=== PATIENT | male | born 1990 | race Caucasian/White ===

== ENCOUNTER 2019-09-30 09:56 | Emergency (ER) | payer MEDICAID, SELFPAY ==
[2019-09-30 10:05] VITALS: BP 135/85; PULSE 84; RESP 13; TEMP 37.2; O2SAT 96; BMI 27.1
[2019-09-30 10:14] LABS: Add Manual Diff / Slide Review NO; Basophils Absolute Auto 0 /uL (0-100); Eosinophils Absolute Auto 300 /uL (0-450); Eosinophils Percent Auto 5.6 % (2-4); Hematocrit 38.1 % (41-53); Hemoglobin 13.4 g/dL (13.5-17.5); Lymphocytes Absolute Auto 1300 /uL (1100-4500); Lymphocytes Percent Auto 28.9 % (25-40); Mean Corpuscular HGB Conc 35.1 % (30-36); Mean Corpuscular Hemoglobin 30.7 PG (26-34); Mean Corpuscular Volume 87.5 fL (80-100); Monocytes Absolute Auto 400 /uL (0-900); Monocytes Percent Auto 8.1 % (3-14); Neutrophils Absolute Auto 2600 /uL (1500-7000); Neutrophils Percent Auto 56.4 % (50-75); Platelet Count 199 X10^3/uL (150-400); Red Blood Cell Count 4.36 X10^6/uL (4.5-5.9); Red Cell Distribution Width 12.9 % (11.6-14.8); White Blood Cell Count 4.6 X10^3/uL (4.5-11.0)
[2019-09-30 10:22] LABS: BUN Creatinine Ratio 23.3 (6-22); Blood Urea Nitrogen 21 mg/dL (9-20); Calcium 9.6 mg/dL (8.4-10.2); Carbon Dioxide 24 mmol/L (22-32); Chloride 104 mmol/L (98-107); Estimated Glomerular Filt Rate > 60.0 mL/min (>60); Glucose 102 mg/dL (70-100); HEMOLYSIS < 15 (0-50); Magnesium 2.1 mg/dL (1.6-2.3); Potassium 4.2 mmol/L (3.4-5.1); Sodium 140 mmol/L (137-145)
[2019-09-30 10:39] LABS: Prolactin 11.3 ng/mL (3.7-17.9)
[2019-09-30] MEDS: KETOROLAC 60 MG/2 ML VIAL 30 MG IV (11:26)
[2019-09-30] MEDS: levETIRAcetam 500 MG in SODIUM CHLORIDE 0.9% 100 ML 420 ML IV (11:26)
[2019-09-30] MEDS: LORazepam 2 MG/ML INJ 0.5 MG IV (11:27)
[2019-09-30 11:53] VITALS: BP 107/59; PULSE 71; RESP 14
--- NOTE | 2019-09-30 20:44 | ED.SEIZURE ---
HPI - Seizure General Chief Complaint: Seizure Stated Complaint: Seizure Time Seen by Provider: 09/30/19 10:51 Source: patient Mode of arrival: EMS Limitations: no limitations History of Present Illness HPI Narrative: The patient is a 28-year-old male who had a history of grand mal seizure today that lasted approximately 2 minutes. He states that he was at the [facility] when he had the seizure. The seizure lasted less than 2 minutes. The patient missed his dose of Keppra. He denies any recent fall or injury. He has not been drinking alcohol or using any drugs. He denies any headache but has had a muscle cramp in his right posterior calf. He denies any back pain neck pain chest pain shortness of breath difficulty in breathing abdominal pain nausea vomiting diarrhea incontinence of urine or stool. He admits to smoking cigarettes. Does not use any drugs. Related Data Allergies Allergy/AdvReac Type Severity Reaction Status Date / Time No Known Drug Allergies Allergy Verified 09/30/19 10:05 Review of Systems Review of Systems ROS Unobtainable: All systems reviewed & are unremarkable except as noted in HPI and below Patient History Social History Smoking Status: Current every day smoker Smoking Status: Current every day smoker alcohol intake frequency: other Substance Use Type: does not use Exam Narrative Exam Narrative: PHYSICAL EXAM: CONSTITUTIONAL: Awake, Alert, Oriented, Coherent, Cooperative in NAD. Does not appear toxic or ill. HEAD: AT/NC EENT: PERRL, FROM of eyes, no discharge, no nystagmus Oral mucosa is moist and pink, posterior pharynx is without erythema or exudate. No appreciable bite to his tongue. NECK: Supple, no obvious JVD, Trachea is midline without stridor, no palpable LN or masses. SPINE: No gross deformity, no palpable tenderness of the cervical, thoracic, lumbar or sacral spine. No CVA tenderness. THORAX: No deformity, retractions, chest wall tenderness, subcutaneous air or crepitice. LUNGS: Clear with symmetrical breath sounds without respiratory distress HEART: Normal heart tones, regular rhythm and rate without murmur. ABDOMEN: Soft, non-tender, normal bowel sounds without guarding, rebound, rigidity or palpable mass or organomegaly. EXTREMITIES: No edema, cyanosis, deformity the patient has muscle cramps in tenderness posterior right calf. SKIN: No rash, bruising, petechiae or purpura. NEURO: Awake, alert, oriented, conversive, cranial nerves II-XII are symmetrical and normal, moves all 4 extremities and is ambulatory Initial Vital Signs Initial Vital Signs: Vital Signs Temperature 99.0 F 09/30/19 10:05 Pulse Rate 84 09/30/19 10:05 Respiratory Rate 13 09/30/19 10:05 Blood Pressure 135/85 09/30/19 10:05 Pulse Oximetry 96 09/30/19 10:05 Course Orders Ordered: Discontinued Medications Levetiracetam 500 mg/ Sodium (Chloride) 105 mls @ 420 mls/hr IV NOW ONE Stop: 09/30/19 11:02 Last Admin: 09/30/19 11:26 Dose: 420 mls/hr Documented by: HEARRINGTO Ketorolac Tromethamine (Toradol) 30 mg IV NOW ONE Stop: 09/30/19 11:16 Last Admin: 09/30/19 11:26 Dose: 30 mg Documented by: HEARRINGTO Lorazepam (Ativan) 0.5 mg IV NOW ONE Stop: 09/30/19 11:16 Last Admin: 09/30/19 11:27 Dose: 0.5 mg Documented by: HEARRINGTO MDM - Seizure Lab Data Result diagrams: 09/30/19 10:03 09/30/19 10:03 Labs: Lab Results 09/30/19 09/30/19 Range/Units 10:03 10:03 WBC 4.6 (4.5-11.0) X10^3/uL RBC 4.36 L (4.5-5.9) X10^6/uL Hgb 13.4 L (13.5-17.5) g/dL Hct 38.1 L (41-53) % MCV 87.5 (80-100) fL MCH 30.7 (26-34) PG MCHC 35.1 (30-36) % RDW 12.9 (11.6-14.8) % Plt Count 199 (150-400) X10^3/uL Neut % (Auto) 56.4 (50-75) % Lymph % (Auto) 28.9 (25-40) % [place] % (Auto) 8.1 (3-14) % Eos % (Auto) 5.6 H (2-4) % Baso % (Auto) 1.0 (0-2) % Neut # (Auto) 2600 (2457-3603) /uL Lymph # (Auto) 1300 (2626-2960) /uL [place] # (Auto) 400 (0-900) /uL Eos # (Auto) 300 (0-450) /uL Baso # (Auto) 0 (0-100) /uL Sodium 140 (137-145) mmol/L Potassium 4.2 (3.4-5.1) mmol/L Chloride 104 (98-107) mmol/L Carbon Dioxide 24 (22-32) mmol/L BUN 21 H (9-20) mg/dL Creatinine 0.90 (0.66-1.25) mg/dL Estimated GFR > 60.0 (>60) mL/min BUN/Creatinine Ratio 23.3 H (6-22) Glucose 102 H (70-100) mg/dL Calcium 9.6 (8.4-10.2) mg/dL Magnesium 2.1 (1.6-2.3) mg/dL Prolactin 11.3 (3.7-17.9) ng/mL Discharge Plan Departure Patient Disposition: Home Clinical Impression: Grand mal seizure, Cramp in muscle, Myalgia Discharge Date/Time: 09/30/19 12:04 Instructions: DI for Seizure Disorder -- Adult, DI for Seizure (Not Epilepsy/Seizure Disorder) Activity Restrictions/Additional Instructions: Continued her usual medications at home and be sure that you are taking your Keppra as prescribed at least 500 mg b.i.d.. Call and make a follow-up appointment with your primary care physician. For generalized aches and pains you can use Tylenol or ibuprofen for the pain and discomfort. If you have another seizure return to the emergency department. You need to keep a log of your seizures to check the frequency and deliver this log to your primary care physician arm.
[2019-10-03 09:02] LABS: Levetiracetam Keppra 5.9 mcg/mL (12.0-46.0)
--- NOTE | 2019-10-23 12:15 | PC.NURSE ---
late entry. pt fluids stopped at 1204 when discharged.
== END 2019-09-30 12:04 | disposition home or self-care (01) ==
PROVIDERS: Emergency Provider Emergency Medicine
DX: G40.409 Other generalized epilepsy and epileptic syndromes, not intractable, without status epilepticus (principal); R25.2 Cramp and spasm; M79.10 Myalgia, unspecified site
CPT/HCPCS: 36415; 80048; 80177; 83735; 84146; 85025; 93005; 96365; 96375; 99284; J1885; J1953; J2060

== ENCOUNTER 2020-09-01 04:04 | Observation (INO) | payer OTHER, MEDICAID, SELFPAY ==
[2020-09-01] VITALS (20 sets, daily range): BP systolic 109–146; BP diastolic 56–87; PULSE 52–132; RESP 16–37; TEMP 36.2–38; O2SAT 94–100; BMI 27.9; BMI 27.0
--- NOTE | 2020-09-01 04:22 | ED_ITS ---
HPI - Extremity Problem General Chief complaint: Extremity Problem,Nontraumatic Stated complaint: swollen legs, states cellulitis on both, hot Time Seen by Provider: 09/01/20 04:07 Source: patient and family Mode of arrival: Wheelchair Limitations: no limitations History of Present Illness HPI Narrative: 29-year-old male comes to the emergency department with 3 days of increasing redness, swelling and pain in his bilateral lower extremities. Patient states he has had fevers and chills intermittently. Denies cold, cough or congestion. No chest pain or shortness of breath. Nausea but no vomiting. He states he has not had any issues with bowel movements. He states he has had some difficulty with urination feels like he has had decreased output. He has had increasing redness and swelling in his lower extremities after cleaning out the garage barefoot. Patient also states he has been skin picking secondary to a relapse with heroin recently. Patient states he was seen at [facility] who is being admitted for bacteremia but ultimately left as he felt his care was not appropriate. He states that he does wear a monitoring ankle, he has been in touch with his stream control officer and states he has their contact information in order to give permission to remove it. Patient does have a history of seizure disorder and takes Keppra daily, he states he has not been missing any doses. He states he has a history of heroin use and recently relapsed. And her facility record schizoaffective disorder, hepatitis-C and bipolar affective disorder. Patient initially accompanied by significant other and child. Patient records were obtained from [facility]. Patient had eloped from ED after being accepted and consistent with patient stating he was told he was to be admitted for IV antibiotics. Related Data Home Medications Medication Instructions Recorded Confirmed levetiracetam [Keppra] 500 mg PO TID 09/01/20 09/01/20 Allergies Allergy/AdvReac Type Severity Reaction Status Date / Time No Known Drug Allergies Allergy Verified 09/30/19 10:05 Review of Systems Review of Systems ROS Unobtainable: All systems reviewed & are unremarkable except as noted in HPI and below Patient History Social History Smoking Status: Current every day smoker Smoking Status: Current every day smoker alcohol intake frequency: other Substance Use Type: former substance user, heroin and amphetamines Exam Narrative Exam Narrative: GEN: 29-year-old male, alert and oriented x 3, patient appears to be in moderate distress, patient does appear uncomfortable. HEENT: Atraumatic, pupils are equal round reactive to light, extraocular movements are intact, nares are clear, TMs are clear with no fluid, there is no conjunctival pallor. Throat is clear without any exudates, erythema, tonsillar enlargement or uvular deviation, no meningeal signs appreciated. HEART: Regular rate and rhythm without murmur, clicks, rubs. Pulses equal bilateral upper extremities. Doppler bilateral lower extremities. LUNGS:Lungs clear to auscultation, no wheezes, rales, crackles, chest moves symmetrically, no tachypnea accessory muscle use appreciated ABD:bowel sounds normal, soft, non-tender, no guarding, rebound, rigidity, no masses noted, no hepatosplenomegaly :No CVA tenderness, MSCL: Patient has tenderness bilateral feet as well as pretibial, patient has significant swelling bilateral lower extremities, erythema tracking into the feet and up the anterior shins and calves, patient has lines that appear to have been drawn with a medical marker with erythema extending significantly beyond, no muscle atrophy, muscles strength 5/5 upper and lower extremities, full range of motion except difficult to assess secondary to swelling of the toes. Patient arrived in wheelchair, he is able to stand and get into the bed but is uncomfortable when standing on his lower extremities. NEURO:CN 2-12 intact, sensation intact to light palpation. SKIN: Patient has multiple excoriated areas on his extremities and torso as well as the changes noted above. Initial Vital Signs Initial Vital Signs: Vital Signs Temperature 100.4 F H 09/01/20 04:10 Pulse Rate 132 H 09/01/20 04:10 Respiratory Rate 26 H 09/01/20 04:10 Blood Pressure 132/87 09/01/20 04:10 Pulse Oximetry 100 09/01/20 04:10 Scores qSOFA Altered Mental Status (GCS <15): No Respiratory rate greater than/equal to 22: Yes Systolic blood pressure less than or equal to 100: No qSOFA Total: 1 0-1 Not High Risk 1-3 High risk Course Orders Ordered: ED Orders 09/01/20 04:18 Urine Drug Screen, Rapid Stat 09/01/20 04:25 C-Reactive Protein Quant Stat Complete Blood Count AUTO DIFF Stat Comprehensive Metabolic Panel Stat Erythrocyte Sedimentation Rate Stat Lactate (Lactic Acid) Stat Levetiracetam Keppra Stat Procalcitonin Stat 09/01/20 04:27 COVID19 Stat 09/01/20 04:30 Blood Culture Stat 09/01/20 05:01 periph venous low extrem bi Stat Acetaminophen (Acetaminophen 325 Mg Tablet) 650 mg PO Q6HR PRN PRN Reason: Fever/Mild Pain (1-3) Al Hydrox/Mg Hydrox/Simethicone (Mag Hydrox/Alum/Simeth 30 Ml Udc) 30 ml PO Q6HR PRN PRN Reason: Dyspepsia Docusate Sodium (Docusate 100 Mg Capsule) 100 mg PO BID PRN PRN Reason: constipation Enoxaparin Sodium (Enoxaparin 40 Mg/0.4 Ml Syringe) 40 mg SUBCUT DAILY [facility] Lactated Ringer's (Lactated Ringers) 2,880 mls @ 960 mls/hr 30 ml/kg infuse over 3 hr (2880 ml) IV NOW ONE Stop: 09/01/20 07:20 Last Titration: 09/01/20 06:44 Dose: 960 mls/hr Documented by: Lactated Ringer's (Lactated Ringers) 1,000 mls @ 1,000 mls/hr IV BOLUS ONE Stop: 09/01/20 07:14 Piperacillin/Tazobactam/Dextrose (Zosyn) 3.375 gm in 50 mls @ 100 mls/hr IV Q6H [facility] Ibuprofen (Ibuprofen 600 Mg Tablet) 600 mg PO Q6HR PRN PRN Reason: Fever/Mild Pain (1-3) Ketorolac Tromethamine (Ketorolac 10 Mg Tablet) 10 mg PO Q6HR PRN PRN Reason: Pain, Moderate (4-6) Stop: 09/06/20 06:19 Levetiracetam (Levetiracetam 250 Mg Tablet) 500 mg PO TID [facility] Naloxone HCl (Naloxone 0.4 Mg/Ml Vial) 0.2 mg IV Q2MIN PRN PRN Reason: Opiate Reversal Ondansetron HCl (Ondansetron 4 Mg Odt) 4 mg PO Q8HR PRN PRN Reason: Nausea And Vomiting Sennosides (Sennosides 8.6 Mg Tablet) 17.2 mg PO BEDTIME PRN PRN Reason: constipation Discontinued Medications Acetaminophen (Acetaminophen 325 Mg Tablet) 975 mg PO NOW ONE Stop: 09/01/20 04:32 Last Admin: 09/01/20 05:39 Dose: 975 mg Documented by: Vancomycin HCl/Dextrose (Vancomycin) 1,500 mg in 300 mls @ 200 mls/hr IV NOW ONE Stop: 09/01/20 05:47 Last Titration: 09/01/20 06:03 Dose: Infused Documented by: Piperacillin Sod/Tazobactam (Sod 4.5 gm/ Sodium Chloride) 100 mls @ 200 mls/hr IV NOW ONE Stop: 09/01/20 04:34 Last Infusion: 09/01/20 06:03 Dose: Infused Documented by: Levetiracetam 1,000 mg/ Sodium (Chloride) 110 mls @ 440 mls/hr IV NOW ONE Stop: 09/01/20 04:57 Last Titration: 09/01/20 05:35 Dose: Infused Documented by: Levetiracetam (Levetiracetam 250 Mg Tablet) 500 mg PO NOW ONE Stop: 09/01/20 04:48 Last Admin: 09/01/20 04:57 Dose: Not Given Documented by: Levetiracetam (Levetiracetam 250 Mg Tablet) 500 mg PO TID [facility]ILY[facility] Morphine Sulfate (Morphine 4 Mg/Ml Inj) 4 mg IV NOW ONE Stop: 09/01/20 04:48 Last Admin: 09/01/20 04:50 Dose: 4 mg Documented by: Vancomycin HCl (Vancomycin Per Pharmacy) 1 request [facility] NOW ONE Stop: 09/01/20 06:20 Consultations Consultation #1: Spoke with [facility] Lewis, who accepts for admission. Sepsis with bilateral lower extremity cellulitis. History of drug abuse, seizure disorder with possible 42nd seizure activity although patient was not really postictal immediately afterwards. Patient was given Ativan. We did load him with Keppra as he has missed his last dose at 5:00 p.m., Vanco the mycin and Zosyn. Labs show an elevation in CRP and ESR, pro calcitonin is not significantly elevated but patient is febrile and tachycardic in the department. Bilateral lower extremity ultrasound prelim report is negative. We also discussed that patient 's monitoring bracelet was cut off secondary to swelling and patient had eloped from [facility] on the 30 of August. Records were obtained and will send those up with patient. Time: 05:44 Additional Consultation(s): Called [phone] Lydia Mata at [employer], and left message at [phone] and left voicemail regarding patient's need to have ankle monitor removed. Lydia Mata called back at [phone] and recommended monitoring bracelet stay with patient. She does ask to be contacted if patient is transferred, leaves or is admitted. Her cell number is [phone] and this is the best way to reach her. Patient has given permission to speak with her and equal employment opportunity officer both. Patient's significant other also updated. Lydia Mata called back at her cell number [phone] and updated about patient admission status at 0635. Called Angelika Nino patient's equal employment opportunity officer at [phone] his equal employment opportunity officer at [phone] and left voicemail regarding patient's need to have ankle monitor removed. PD also contacted and states can just be cut off. They will document in there case files that patient anklet being removed for medical purposes. Anklet cut off by nursing and myself in the department. Vital Signs Vital signs: Vital Signs - 8 hr 09/01/20 04:10 09/01/20 04:15 09/01/20 04:45 Temperature 100.4 F H Pulse Rate 132 H 132 H 121 H Respiratory Rate 26 H 24 29 H Blood Pressure 132/87 132/87 Pulse Oximetry 100 100 96 09/01/20 05:02 09/01/20 05:30 09/01/20 05:37 Temperature Pulse Rate 122 H 114 H 113 H Respiratory Rate 37 H 17 23 Blood Pressure 125/62 Pulse Oximetry 98 97 95 09/01/20 05:39 Temperature 100.4 F H Pulse Rate Respiratory Rate Blood Pressure Pulse Oximetry MDM - Extremity (Nontraumatic) Lab Data Result diagrams: 09/01/20 04:25 09/01/20 04:25 Labs: Lab Results 09/01/20 09/01/20 09/01/20 Range/Units 04:25 04:25 04:25 WBC 10.3 (4.5-11.0) X10^3/uL RBC 3.83 L (4.5-5.9) X10^6/uL Hgb 11.6 L (13.5-17.5) g/dL Hct 33.6 L (41-53) % MCV 87.6 (80-100) fL MCH 30.3 (26-34) PG MCHC 34.6 (30-36) % RDW 12.5 (11.6-14.8) % Plt Count 221 (150-400) X10^3/uL Neut % (Auto) 76.8 H (50-75) % Lymph % (Auto) 13.0 L (25-40) % [place] % (Auto) 9.7 (3-14) % Eos % (Auto) 0.1 L (2-4) % Baso % (Auto) 0.4 (0-2) % Neut # (Auto) 7900 H (3467-9288) /uL Lymph # (Auto) 1300 (3291-2666) /uL [place] # (Auto) 1000 H (0-900) /uL Eos # (Auto) 0 (0-450) /uL Baso # (Auto) 0 (0-100) /uL ESR (0-15) MM/HR Sodium 136 L (137-145) mmol/L Potassium 3.4 (3.4-5.1) mmol/L Chloride 101 (98-107) mmol/L Carbon Dioxide 28 (22-32) mmol/L BUN 15 (9-20) mg/dL Creatinine 0.92 (0.66-1.25) mg/dL Estimated GFR > 60.0 (>60) mL/min BUN/Creatinine Ratio 16.3 (6-22) Glucose 113 H (70-100) mg/dL Lactate (0.7-2.1) mmol/L Calcium 9.2 (8.4-10.2) mg/dL Magnesium (1.6-2.3) mg/dL Total Bilirubin 0.7 (0.2-1.3) mg/dL AST 24 (17-59) IU/L ALT 14 (<50) IU/L Alkaline Phosphatase 63 (38-126) U/L Total Creatine Kinase (55-170) U/L C-Reactive Protein (<1.0) mg/dL Total Protein 7.4 (6.3-8.2) g/dL Albumin 4.2 (3.5-5.0) g/dL Globulin 3.2 (1.7-4.1) g/dL Albumin/Globulin Ratio 1.3 (1.0-2.8) Procalcitonin 0.16 (<0.5) ng/mL SARS-CoV-2 (PCR) (Negative) 09/01/20 09/01/20 09/01/20 Range/Units 04:25 04:25 04:25 WBC (4.5-11.0) X10^3/uL RBC (4.5-5.9) X10^6/uL Hgb (13.5-17.5) g/dL Hct (41-53) % MCV (80-100) fL MCH (26-34) PG MCHC (30-36) % RDW (11.6-14.8) % Plt Count (150-400) X10^3/uL Neut % (Auto) (50-75) % Lymph % (Auto) (25-40) % [place] % (Auto) (3-14) % Eos % (Auto) (2-4) % Baso % (Auto) (0-2) % Neut # (Auto) (8260-6364) /uL Lymph # (Auto) (5023-0349) /uL [place] # (Auto) (0-900) /uL Eos # (Auto) (0-450) /uL Baso # (Auto) (0-100) /uL ESR 54 H (0-15) MM/HR Sodium (137-145) mmol/L Potassium (3.4-5.1) mmol/L Chloride (98-107) mmol/L Carbon Dioxide (22-32) mmol/L BUN (9-20) mg/dL Creatinine (0.66-1.25) mg/dL Estimated GFR (>60) mL/min BUN/Creatinine Ratio (6-22) Glucose (70-100) mg/dL Lactate 1.0 (0.7-2.1) mmol/L Calcium (8.4-10.2) mg/dL Magnesium (1.6-2.3) mg/dL Total Bilirubin (0.2-1.3) mg/dL AST (17-59) IU/L ALT (<50) IU/L Alkaline Phosphatase (38-126) U/L Total Creatine Kinase (55-170) U/L C-Reactive Protein 15.1 H (<1.0) mg/dL Total Protein (6.3-8.2) g/dL Albumin (3.5-5.0) g/dL Globulin (1.7-4.1) g/dL Albumin/Globulin Ratio (1.0-2.8) Procalcitonin (<0.5) ng/mL SARS-CoV-2 (PCR) (Negative) 09/01/20 09/01/20 09/01/20 Range/Units 04:25 04:25 04:27 WBC (4.5-11.0) X10^3/uL RBC (4.5-5.9) X10^6/uL Hgb (13.5-17.5) g/dL Hct (41-53) % MCV (80-100) fL MCH (26-34) PG MCHC (30-36) % RDW (11.6-14.8) % Plt Count (150-400) X10^3/uL Neut % (Auto) (50-75) % Lymph % (Auto) (25-40) % [place] % (Auto) (3-14) % Eos % (Auto) (2-4) % Baso % (Auto) (0-2) % Neut # (Auto) (6713-8854) /uL Lymph # (Auto) (4357-6513) /uL [place] # (Auto) (0-900) /uL Eos # (Auto) (0-450) /uL Baso # (Auto) (0-100) /uL ESR (0-15) MM/HR Sodium (137-145) mmol/L Potassium (3.4-5.1) mmol/L Chloride (98-107) mmol/L Carbon Dioxide (22-32) mmol/L BUN (9-20) mg/dL Creatinine (0.66-1.25) mg/dL Estimated GFR (>60) mL/min BUN/Creatinine Ratio (6-22) Glucose (70-100) mg/dL Lactate (0.7-2.1) mmol/L Calcium (8.4-10.2) mg/dL Magnesium 2.0 (1.6-2.3) mg/dL Total Bilirubin (0.2-1.3) mg/dL AST (17-59) IU/L ALT (<50) IU/L Alkaline Phosphatase (38-126) U/L Total Creatine Kinase 162 (55-170) U/L C-Reactive Protein (<1.0) mg/dL Total Protein (6.3-8.2) g/dL Albumin (3.5-5.0) g/dL Globulin (1.7-4.1) g/dL Albumin/Globulin Ratio (1.0-2.8) Procalcitonin (<0.5) ng/mL SARS-CoV-2 (PCR) Negative (Negative) Imaging Data B/L lower extremity DVT US: Radiologist's Impression: b/l DVT US negative MDM Narrative Medical decision making narrative: Patient arrives with bilateral lower ext remity cellulitis. Patient was seen at [facility] in 1229, plan was for admission for lower extremity cellulitis, patient initially started receiving IV antibiotics but eloped. Patient's labs show an elevated ESR, CRP and procalcitonin at their facility. Patient also had bilateral lower extremity DVT evaluation which was negative bilaterally. Patient is febrile, tachycardic with worsening erythema, swelling and has markings consistent with being evaluated had another facility showing that the erythema is extending far beyond that site. Patient states he has used recreational substances. Patient does appear to have cellulitis with sepsis. He also has an ankle monitoring device on his right lower extremity which has surrounding swelling and cellulitis and is potentially decreasing patient blood flow. He did require Doppler for pulse we did attempt to contact the monitoring service, his equal employment opportunity officer and left a voicemail. We also contacted local PD who recommended that we can cut the monitor off if we are concerned for a medical situation and did know in the rec ords that we were cutting it off this evening. 42nd seizure although he was talking while I was in the room, 1 mg Ativan was given and patient was loaded with Keppra which he normally takes but missed his last dose 12 hours ago. Patient did state his last seizure was a week ago. Patient accepted for admission by [facility] Lewis. Patient heart rate improving after 1.5L of fluid, no afebrile with improvement of RR. Patient did recieve ativan and morphine and much more comfortable afterwards and later sleeping. Discharge Plan Departure Patient Disposition: Admitted as Observation Clinical Impression: Bilateral lower leg cellulitis, Sepsis Admit Date/Time: 09/01/20 05:44 Admit Provider: Sofi Lewis
[2020-09-01] MEDS: VANCOMYCIN 1,500 MG/300 ML PIGGYBACK 200 MG IV (04:40)
[2020-09-01] MEDS: LACTATED RINGERS 960 ML IV (04:40)
[2020-09-01 04:41] LABS: Add Manual Diff / Slide Review NO; Basophils Absolute Auto 0 /uL (0-100); Basophils Percent Auto 0.4 % (0-2); Eosinophils Absolute Auto 0 /uL (0-450); Eosinophils Percent Auto 0.1 % (2-4); Hematocrit 33.6 % (41-53); Hemoglobin 11.6 g/dL (13.5-17.5); Lymphocytes Absolute Auto 1300 /uL (1100-4500); Mean Corpuscular HGB Conc 34.6 % (30-36); Mean Corpuscular Hemoglobin 30.3 PG (26-34); Mean Corpuscular Volume 87.6 fL (80-100); Monocytes Absolute Auto 1000 /uL (0-900); Monocytes Percent Auto 9.7 % (3-14); Neutrophils Absolute Auto 7900 /uL (1500-7000); Neutrophils Percent Auto 76.8 % (50-75); Platelet Count 221 X10^3/uL (150-400); Red Blood Cell Count 3.83 X10^6/uL (4.5-5.9); Red Cell Distribution Width 12.5 % (11.6-14.8); White Blood Cell Count 10.3 X10^3/uL (4.5-11.0)
[2020-09-01] MEDS: PIPERACILLIN/TAZO 4.5 GM in SODIUM CHLORIDE 0.9% 100 ML 200 ML IV (04:42)
[2020-09-01 04:47] LABS: Alanine Aminotransferase 14 IU/L (<50); Albumin 4.2 g/dL (3.5-5.0); Albumin Globulin Ratio 1.3 (1.0-2.8); Alkaline Phosphatase 63 U/L (38-126); Aspartate Aminotransferase 24 IU/L (17-59); BUN Creatinine Ratio 16.3 (6-22); Bilirubin Total 0.7 mg/dL (0.2-1.3); Blood Urea Nitrogen 15 mg/dL (9-20); Calcium 9.2 mg/dL (8.4-10.2); Carbon Dioxide 28 mmol/L (22-32); Chloride 101 mmol/L (98-107); Estimated Glomerular Filt Rate > 60.0 mL/min (>60); Globulin 3.2 g/dL (1.7-4.1); Glucose 113 mg/dL (70-100); HEMOLYSIS < 15 (0-50); Potassium 3.4 mmol/L (3.4-5.1); Sodium 136 mmol/L (137-145); Total Protein 7.4 g/dL (6.3-8.2)
[2020-09-01] MEDS: MORPHINE 4 MG/ML INJ IV (04:50)
[2020-09-01] MEDS: LORazepam 2 MG/ML INJ (04:52)
--- NOTE | 2020-09-01 04:56 | PC.NURSE ---
Pt had ankle monitor on ankle causing increased swelling around monitor. Dr. Kern tried to call Lydia Mata (location salesforce specialist) at [phone]. and left voice mail. Call [employer] and talked to corporal Buffin, who recommend if medically necessary to go ahead and cut off ankle monitor. He placed a note in patients record . Removed Ankle monitor per doctor's order. Let another voicemail for Lydia to informed of cutting of ankle monitor.
[2020-09-01 05:00] LABS: COVID19 -Nasal RAPID Negative (Negative)
--- NOTE | 2020-09-01 05:01 | DI.US.S_ITS ---
PROCEDURE: US PERIPH VENOUS LOW EXTREM BI INDICATIONS: EDEMA TECHNIQUE: Real-time imaging, as well as color and pulse Doppler interrogation, were performed of the deep veins of both legs from the inguinal ligament to the popliteal fossa. COMPARISON: None. FINDINGS: Right: The common femoral, femoral and popliteal veins are normally compressible, and free of intraluminal thrombus. Color and pulse Doppler demonstrate normal phasic intravascular flow. There is normal augmentation response to distal compression maneuver. Left: The common femoral, femoral and popliteal veins are normally compressible, and free of intraluminal thrombus. Color and pulse Doppler demonstrate normal phasic intravascular flow. There is normal augmentation response to distal compression maneuver. IMPRESSION: 1. No evidence of deep venous thrombosis in the right or left lower extremity. Dictated by: Geo Luong M.D. on 09/01/2020 at 7:45 Approved by: Geo Luong M.D. on 09/01/2020 at 7:45
[2020-09-01 05:03] LABS: Procalcitonin 0.16 ng/mL (<0.5)
--- NOTE | 2020-09-01 05:04 | PC.NURSE ---
0451: RN in pt room to administer pain meds and pt appears to be having seizure like activity. Rigid tremors with clenched jaw lasting approx [address] Kern made aware and at bedside. Ativan 1mg given IVP. Pt appears to have relaxed. repositioned in bed. PO Keppra changed to IV Keppra. Tylenol held until swallow eval can be performed.
--- NOTE | 2020-09-01 05:07 | PC.NURSE ---
Lydia Mata--Location specialist [phone]. Advised to keep ankle bracelet in a bag and have it transported with him wherever he goes. If pt vicenteopes, Lydia is to be contacted first.
[2020-09-01] MEDS: levETIRAcetam 1,000 MG in SODIUM CHLORIDE 0.9% 100 ML 440 ML IV (05:09)
[2020-09-01 05:21] LABS: Erythrocyte Sedimentation Rate 54 MM/HR (0-15)
[2020-09-01 05:26] LABS: C-Reactive Protein Quant 15.1 mg/dL (<1.0)
[2020-09-01] MEDS: ACETAMINOPHEN 325 MG TABLET 975 MG PO (05:39)
--- NOTE | 2020-09-01 06:14 | PC.NURSE ---
Angelika Nino--real estate loan officer [phone]. Message left on machine by Dr Kern advising that pt was in department and ankle monitoring device was removed.
[2020-09-01 06:43] LABS: Creatine Kinase 162 U/L (55-170)
--- NOTE | 2020-09-01 11:01 | PC.NURSE ---
Addendum entered by Sofi Rodriguez R.N. 09/01/20 15:28: PT now awake enough to complete admission assessment. Will notify oncoming RN. Addendum entered by Sofi Rodriguez R.N. 09/01/20 14:02: Pt much more alert later in shift, able to stay awake and respond appropriately. I was really sick wasn't I? Reassured Pt recieving care with IV ABX, reassured. Nicotine Patch in place per request. Eating and drinking without difficulty. Original Note: Am Shift Assumed care of patient, who is notably sedated. Unable to hold conversation with this RN, nodding off, sleeping sitting upright. Pt denies taking anything, did receive Ativan x1 in ER. S.o. brought clothing from home, and cell phone. Placed in room. Tox screen sent to lab. IVF bolus completed. SL. Pt denies pain, erythema and edema to BLE, Pt has not tolerated elevating so far this shift. Tele in place, [facility].
[2020-09-01] MEDS: PIPERACILLIN-TAZO 3.375 GM/50 ML FROZ.PIGGY IV ×3 (12:00→22:47)
--- NOTE | 2020-09-01 12:05 | PT.IPNOTE ---
Holding physical therapy evaluation today due to patient unable to participate per physician. Will try again tomorrow.
[2020-09-01 12:23] LABS: UR Morphine/Opiate cutoff 300 Positive (Negative); Ur Creatinine Normal (Normal); Ur Specific Gravity Normal (Normal); Urine Amphetamines Positive (Negative); Urine Barbiturates Negative (Negative); Urine Benzodiazepines Negative (Negative); Urine Cocaine Negative (Negative); Urine MDMA Negative (Negative); Urine Methadone Negative (Negative); Urine Methamphetamines Positive (Negative); Urine Oxycodone Negative (Negative); Urine Phencyclidine Negative (Negative); Urine Tetrahydrocannabinol Negative (Negative); Urine Tricyclic Antidepressant Negative (Negative); Urine pH Normal (Normal)
[2020-09-01] MEDS: VANCOMYCIN 1,250 MG/250 ML PIGGYBACK 250 MG IV ×2 (13:20→20:42)
[2020-09-01] MEDS: NICOTINE 21 MG PATCH TOP (13:30)
[2020-09-01] MEDS: levETIRAcetam 250 MG TABLET 500 MG PO ×2 (13:32→20:42)
[2020-09-01] MEDS: KETOROLAC 30 MG/ML VIAL IV ×3 (13:34→22:47)
--- NOTE | 2020-09-01 13:53 | OT.IP.TRT ---
Discussed case with MD and nursing. Pt is not appropriate at this time for OT services. Will hold per MD for tomorrow.
--- NOTE | 2020-09-01 15:28 | PT.IPNOTE ---
Physical Therapy- Observed pt ambulating independently in his room. He presents with a steady gait pattern without an assistive device. He is able to bend over to the floor and fruit or nut picker his clothes. Pt reports his legs feel much better and is no longer having trouble walking. No skilled physical therapy needs identified at this time. Will discharge physical therapy. Please re-order PT if his mobility status changes during this hospitalization.
--- NOTE | 2020-09-01 17:35 | PM.HP.1 ---
History of Present Illness History of Present Illness Date Patient Seen: 09/01/20 Chief complaint: swollen legs, states cellulitis on both, hot Narrative: David Moses is a 29-year-old male with a past medical history for seizure disorder, polysubstance IV drug abuse including IV heroin and methamphetamine abuse and tobacco dependence who presented to the ED after leaving [facility] for bilateral cellulitis of his lower extremities. He reports increasing redness, swelling and pain in his bilateral lower extremities over the last 2-3 days. He states he has had fevers and chills intermittently. He denies cold, cough or congestion. He denies chest pain or shortness of breath. He has had nausea but no vomiting. He states he has not had any or issues with bowel movements. He has had some difficulty with urination and endorses decreased urinary output. 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 Patient also states he has been skin picking secondary to a relapse with heroin recently. Patient states he was seen at [facility] and was being admitted for bacteremia but ultimately left as he felt his care was not appropriate. He is on corrections for assault and has a monitoring ankle bracelet which was cut off in the ED with permission of the Department of Corrections to aid in treatment of his cellulitis. The patient does have a history of seizure disorder and takes Keppra daily and has not been missed any doses. He states he has a history of heroin use and recently relapsed with last use 24-36 hours before admission. He reports he had previously been sober from IV drug use for 9 months and prior to that for 2 year. He previously received methadone but stopped going to the methadone clinic due to transportation issues. Per outside facility medical record, he also has a past medical history of schizoaffective disorder, hepatitis-C and bipolar affective disorder. Patient initially accompanied by significant other and child. Patient records were obtained from [facility] and reviewed. Patient had eloped from ED after being accepted and consistent with patient stating he was told he was to be admitted for IV antibiotics. Patient History Medical History (Updated 09/04/20 @ 21:13 by Nancy William DO) Bipolar 1 disorder Hepatitis C IVDU (intravenous drug user) Polysubstance abuse Schizoaffective disorder Seizure disorder Tobacco dependence Surgical History (Updated 09/04/20 @ 21:13 by Nancy William DO) No pertinent past surgical history Family & Social History Family History (Updated 09/04/20 @ 21:15 by Nancy William DO) Mother Healthy adult Father Healthy adult Brother Pancreatic cancer Social History: household members significant other Prior Living Arrangements House Safety & Behavioral: Feels Safe in Current Yes Environment Been Physically Hurt or No Threatened By a Person Suicidal Ideation Description None Suicide Plan Description No Plan Tobacco & Substance use: Tobacco type cigarettes Smoking Status Current every day smoker Smoking packs per day 1 ppd alcohol intake None Substance Use Type IV methamphetamines and heroin Meds Home Medications and Allergies Home Medications Medication Instructions Recorded Confirmed Type levetiracetam [Keppra] 500 mg PO TID 09/01/20 09/01/20 History amoxicillin-pot clavulanate 1 tab PO BID #14 tab 09/02/20 Rx [Augmentin] Allergies Allergy/AdvReac Type Severity Reaction Status Date / Time No Known Drug Allergies Allergy Verified 09/30/19 10:05 Review of Systems Review of Systems Narrative: A 10 system comprehensive review of systems was conducted with the patient and found to be negative except as above in the History of Present Illness. Exam Vital Signs (past 8 hours): - 09/01/20 09:57 09/01/20 12:00 09/01/20 13:00 Temperature 97.1 F L Pulse Rate 80 Respiratory Rate 16 Blood Pressure 118/61 Pulse Oximetry 99 100 99 09/01/20 15:30 Temperature 97.1 F L Pulse Rate 82 Respiratory Rate 16 Blood Pressure 110/70 Pulse Oximetry 100 Oxygen Delivery Method Room Air Oxygen Flow Rate 0 Narrative Exam Narrative: General: Middle-aged male sitting in bed and in no acute distress, well-developed, well-nourished, mildly anxious, tangential but otherwise appropriately interactive. HEENT: Normocephalic, atraumatic. External ears without defect. Pupils equal, round, and reactive to light. Anicteric sclerae, moist conjunctivae, and no lid lag. Oropharynx free of erythema and cobble stoning with moist mucosa. Neck: Supple with full range of motion. No jugular venous distension. No lymphadenopathy or thyromegaly. Cardiovascular: Regular rate and rhythm without murmurs, rubs, or gallops appreciated. Pulmonary: Clear to auscultation bilaterally without crackles, wheezes, or rhonchi. Normal respiratory effort with no use of accessory muscles. Abdomen: Soft, bowel sounds present, nontender, nondistended. No hepatosplenomegaly or masses appreciated. Extremities: No clubbing or cyanosis. Moderate bilateral pitting edema to ankles. Scattered erythema predominantly over medial ankles that has been outlined and retracting within the margins. Skin: Scattered excoriations with scabbing noted throughout entire body consistent with picking. Neurological: Cranial nerves grossly intact. Psychiatric: Anxious mood and affect. Tangential thinking. Alert and oriented to person, place, and time. Poor insight. Cooperative with care. Objective Labs Result Diagrams: 09/02/20 03:33 09/02/20 03:33 Labs: Laboratory Results - last 24 hr 09/01/20 09/01/20 09/01/20 04:25 04:25 04:25 WBC 10.3 RBC 3.83 L Hgb 11.6 L Hct 33.6 L MCV 87.6 MCH 30.3 MCHC 34.6 RDW 12.5 Plt Count 221 Neut % (Auto) 76.8 H Lymph % (Auto) 13.0 L [place] % (Auto) 9.7 Eos % (Auto) 0.1 L Baso % (Auto) 0.4 Neut # (Auto) 7900 H Lymph # (Auto) 1300 [place] # (Auto) 1000 H Eos # (Auto) 0 Baso # (Auto) 0 ESR Sodium 136 L Potassium 3.4 Chloride 101 Carbon Dioxide 28 BUN 15 Creatinine 0.92 Estimated GFR > 60.0 BUN/Creatinine Ratio 16.3 Glucose 113 H Lactate Calcium 9.2 Magnesium Total Bilirubin 0.7 AST 24 ALT 14 Alkaline Phosphatase 63 Total Creatine Kinase C-Reactive Protein Total Protein 7.4 Albumin 4.2 Globulin 3.2 Albumin/Globulin Ratio 1.3 Procalcitonin 0.16 Nasal Screen MRSA (PCR) U Opiates 300ng/mL cut Ur Oxycodone Screen Urine Methadone Screen Ur Barbiturates Screen U Tricyclic Antidepress Ur Phencyclidine Scrn Ur Amphetamines Screen U Methamphetamines Scrn Ur MDMA Scrn (Ecstasy) U Benzodiazepines Scrn Urine Cocaine Screen U Marijuana (THC) Screen SARS-CoV-2 (PCR) 09/01/20 09/01/20 09/01/20 04:25 04:25 04:25 WBC RBC Hgb Hct MCV MCH MCHC RDW Plt Count Neut % (Auto) Lymph % (Auto) [place] % (Auto) Eos % (Auto) Baso % (Auto) Neut # (Auto) Lymph # (Auto) [place] # (Auto) Eos # (Auto) Baso # (Auto) ESR 54 H Sodium Potassium Chloride Carbon Dioxide BUN Creatinine Estimated GFR BUN/Creatinine Ratio Glucose Lactate 1.0 Calcium Magnesium Total Bilirubin AST ALT Alkaline Phosphatase Total Creatine Kinase C-Reactive Protein 15.1 H Total Protein Albumin Globulin Albumin/Globulin Ratio Procalcitonin Nasal Screen MRSA (PCR) U Opiates 300ng/mL cut Ur Oxycodone Screen Urine Methadone Screen Ur Barbiturates Screen U Tricyclic Antidepress Ur Phencyclidine Scrn Ur Amphetamines Screen U Methamphetamines Scrn Ur MDMA Scrn (Ecstasy) U Benzodiazepines Scrn Urine Cocaine Screen U Marijuana (THC) Screen SARS-CoV-2 (PCR) 09/01/20 09/01/20 09/01/20 04:25 04:25 04:27 WBC RBC Hgb Hct MCV MCH MCHC RDW Plt Count Neut % (Auto) Lymph % (Auto) [place] % (Auto) Eos % (Auto) Baso % (Auto) Neut # (Auto) Lymph # (Auto) [place] # (Auto) Eos # (Auto) Baso # (Auto) ESR Sodium Potassium Chloride Carbon Dioxide BUN Creatinine Estimated GFR BUN/Creatinine Ratio Glucose Lactate Calcium Magnesium 2.0 Total Bilirubin AST ALT Alkaline Phosphatase Total Creatine Kinase 162 C-Reactive Protein Total Protein Albumin Globulin Albumin/Globulin Ratio Procalcitonin Nasal Screen MRSA (PCR) U Opiates 300ng/mL cut Ur Oxycodone Screen Urine Methadone Screen Ur Barbiturates Screen U Tricyclic Antidepress Ur Phencyclidine Scrn Ur Amphetamines Screen U Methamphetamines Scrn Ur MDMA Scrn (Ecstasy) U Benzodiazepines Scrn Urine Cocaine Screen U Marijuana (THC) Screen SARS-CoV-2 (PCR) Negative 09/01/20 09/01/20 07:00 10:00 WBC RBC Hgb Hct MCV MCH MCHC RDW Plt Count Neut % (Auto) Lymph % (Auto) [place] % (Auto) Eos % (Auto) Baso % (Auto) Neut # (Auto) Lymph # (Auto) [place] # (Auto) Eos # (Auto) Baso # (Auto) ESR Sodium Potassium Chloride Carbon Dioxide BUN Creatinine Estimated GFR BUN/Creatinine Ratio Glucose Lactate Calcium Magnesium Total Bilirubin AST ALT Alkaline Phosphatase Total Creatine Kinase C-Reactive Protein Total Protein Albumin Globulin Albumin/Globulin Ratio Procalcitonin Nasal Screen MRSA (PCR) Negative for mrsa U Opiates 300ng/mL cut Positive H Ur Oxycodone Screen Negative Urine Methadone Screen Negative Ur Barbiturates Screen Negative U Tricyclic Antidepress Negative Ur Phencyclidine Scrn Negative Ur Amphetamines Screen Positive H U Methamphetamines Scrn Positive H Ur MDMA Scrn (Ecstasy) Negative U Benzodiazepines Scrn Negative Urine Cocaine Screen Negative U Marijuana (THC) Screen Negative SARS-CoV-2 (PCR) Assessment & Plan Assessment & Plan narrative: David Moses is a 29-year-old male with a past medical history for seizure disorder, polysubstance IV drug abuse including IV heroin and methamphetamine abuse and tobacco dependence who presented to the ED after leaving [facility] for bilateral cellulitis of his lower extrremities 1. Acute bilateral lower extremity cellulitis, present on admission. Active. -Patient presented with worsening redness, swelling and warmth of his bilateral lower extremities. Patient was to be admitted to [facility] but left against medical advice. -Initial WBC and procalcitonin 0.16. Continue to monitor WBC and procalcitonin daily. Patient does not meet sepsis criteria and qSOFA score 0. -Inflammatory markers highly elevated at ESR 54 and CRP 15.1. -Blood cultures x2 preliminarily have no growth. -Received vancomycin and Zosyn in ED. continue vancomycin with dosing per pharmacist and Zosyn 3.375 g every 6 hours. -No discrete abscess identified but low threshold to obtain imaging. 2. Seizure disorder, chronic, present on admission. Stable. -Continue home Keppra 500 mg 3 times daily. 3. Polysubstance IV drug abuse, chronic, present on admission. Stable. -Patient has a history of IV heroin and methamphetamine use with recent relapse. He reports he previously was sober for 9 and half months and prior to that for a 2 year period. Patient has previously been on methadone which he stopped going to the clinic due to transportation issues. -Continue to monitor for signs of withdrawal. Ordered hydrocodone 5-325 mg every 6 hours as needed for severe pain related to cellulitis. 4. Tobacco dependence, chronic, present on admission. Stable. -Patient smokes 1 pack per day. -Counseled the patient regarding smoking cessation. Patient has no plan to quit smoking. -Ordered nicotine patch 21 mg daily to avoid nicotine withdrawal. Code status: Full code VTE prophylaxis: Enoxaparin Patient is admitted under inpatient status with expected length of stay greater than 2 midnights due to severity of presenting symptoms, risk of adverse event, and complexity of treatment plan. Quality VTE Deep Vein Thrombosis/Pulmonary Embolism Present on Admission: No
[2020-09-01] MEDS: SODIUM CHLORIDE 0.9% FLUSH 10 ML IV (20:49)
[2020-09-02 00:50] VITALS: O2SAT 99
[2020-09-02 03:48] VITALS: BP 118/71; PULSE 104; RESP 17; TEMP 36.2; O2SAT 100
[2020-09-02 03:54] LABS: Add Manual Diff / Slide Review NO; Basophils Absolute Auto 0 /uL (0-100); Basophils Percent Auto 0.9 % (0-2); Eosinophils Absolute Auto 100 /uL (0-450); Eosinophils Percent Auto 2.6 % (2-4); Hematocrit 34.8 % (41-53); Hemoglobin 11.9 g/dL (13.5-17.5); Lymphocytes Absolute Auto 900 /uL (1100-4500); Lymphocytes Percent Auto 20.8 % (25-40); Mean Corpuscular HGB Conc 34.2 % (30-36); Mean Corpuscular Hemoglobin 30.2 PG (26-34); Mean Corpuscular Volume 88.2 fL (80-100); Monocytes Absolute Auto 600 /uL (0-900); Neutrophils Absolute Auto 2700 /uL (1500-7000); Neutrophils Percent Auto 62.7 % (50-75); Platelet Count 206 X10^3/uL (150-400); Red Blood Cell Count 3.95 X10^6/uL (4.5-5.9); Red Cell Distribution Width 12.3 % (11.6-14.8); White Blood Cell Count 4.3 X10^3/uL (4.5-11.0)
[2020-09-02 04:00] VITALS: O2SAT 100
[2020-09-02 04:01] LABS: Alanine Aminotransferase 34 IU/L (<50); Albumin 3.3 g/dL (3.5-5.0); Albumin Globulin Ratio 1.1 (1.0-2.8); Alkaline Phosphatase 60 U/L (38-126); Aspartate Aminotransferase 45 IU/L (17-59); BUN Creatinine Ratio 19.7 (6-22); Bilirubin Total 0.3 mg/dL (0.2-1.3); Blood Urea Nitrogen 13 mg/dL (9-20); Calcium 8.5 mg/dL (8.4-10.2); Carbon Dioxide 27 mmol/L (22-32); Chloride 110 mmol/L (98-107); Estimated Glomerular Filt Rate > 60.0 mL/min (>60); Glucose 97 mg/dL (70-100); HEMOLYSIS < 15 (0-50); Potassium 3.9 mmol/L (3.4-5.1); Sodium 139 mmol/L (137-145); Total Protein 6.3 g/dL (6.3-8.2)
[2020-09-02 04:13] LABS: Vancomycin Trough 11.5 ug/mL (10-20)
[2020-09-02] MEDS: VANCOMYCIN 1,250 MG/250 ML PIGGYBACK 250 MG IV (04:26)
[2020-09-02] MEDS: VANCOMYCIN TROUGH 1 REQUEST MISC (04:31)
[2020-09-02] MEDS: KETOROLAC 30 MG/ML VIAL IV (05:01)
[2020-09-02] MEDS: SODIUM CHLORIDE 0.9% FLUSH 10 ML IV (05:04)
[2020-09-02] MEDS: PIPERACILLIN-TAZO 3.375 GM/50 ML FROZ.PIGGY IV (05:40)
[2020-09-02 09:03] VITALS: BP 127/72; PULSE 60; RESP 16; TEMP 36.9; O2SAT 100
--- NOTE | 2020-09-02 09:16 | PM.DS.1 ---
History of Present Illness History of Present Illness Date Patient Seen: 09/02/20 Chief complaint: swollen legs, states cellulitis on both, hot Narrative: David Moses is a 29-year-old male with a past medical history for polysubstance drug abuse including IV heroin and methamphetamine abuse and tobacco dependence who presented to the ED after leaving [facility] for bilateral cellulitis of his lower extrremities. He reports increasing redness, swelling and pain in his bilateral lower extremities over the last 2-3 days. He states he has had fevers and chills intermittently. He denies cold, cough or congestion. He denies chest pain or shortness of breath. He has had nausea but no vomiting. He states he has not had any or issues with bowel movements. He states he has had some difficulty with urination feels like he has had decreased urinary output. 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 Patient also states he has been skin picking secondary to a relapse with heroin recently. Patient states he was seen at [facility] who is being admitted for bacteremia but ultimately left as he felt his care was not appropriate. He states that he does wear a monitoring ankle, he has been in touch with his signals officer and states he has their contact information in order to give permission to remove it. Patient does have a history of seizure disorder and takes Keppra daily, he states he has not been missing any doses. He states he has a history of heroin use and recently relapsed. And her facility record schizoaffective disorder, hepatitis-C and bipolar affective disorder. Patient initially accompanied by significant other and child. Patient records were obtained from [facility]. Patient had eloped from ED after being accepted and consistent with patient stating he was told he was to be admitted for IV antibiotics Discharge Providers Provider Date of admission: 09/01/20 05:44 Discharge Date: 09/02/20 Consults: 09/01/20 06:22 Consult to Discharge Planning Routine Comment: Consult to Occupational Therapy Evaluate & Treat Comment: Physician Instructions: Evaluate and treat Consult to Physical Therapy Evaluate & Treat Comment: Physician Instructions: Evaluate and Treat Discharge provider: Neema Hair MD Summary Hospital Course Discharge Diagnosis: 1. Lower extremity cellulitis 2. Polysubstance abuse 3. Seizure disorder Hospital Course: Patient was admitted to the hospital for IV antibiotics. He had no further fever, repeat blood cultures were negative, patient had a normal white count. Lower extremity showed improvement in any erythema. There were multiple pinpoint excoriations. However there was no warmth swelling or increasing erythema. Patient was placed on Zosyn and vancomycin. He reports he does have a primary care provider although he does not know their name. The patient was deemed appropriate for discharge and arrangements will be made for him to discharge home. He will be sent home on Augmentin as he has improved on the day Zosyn here in the hospital. Status at Discharge Cognitive/behavioral status at discharge: oriented Functional status at discharge: independent ambulation Overall status at discharge: patient is back to baseline Time Spent with Patient Time spent: Less than 30 minutes Exam Vital Signs (past 8 hours): - 09/02/20 03:48 09/02/20 04:00 09/02/20 09:03 Temperature 97.2 F L 98.5 F Pulse Rate 104 H 60 Respiratory Rate 17 16 Blood Pressure 118/71 127/72 Pulse Oximetry 100 100 100 Oxygen Delivery Method Room Air Oxygen Flow Rate 0 Narrative Exam Narrative: Pleasant gentleman in no acute distress Lungs: Clear to auscultation Cardiac exam: Regular rate rhythm normal S1-S2 with a 2/6 systolic ejection murmur Abdomen: Soft nontender nondistended Extremities: No erythema, no warmth, multiple pinpoint scabbed areas. There is no streaking, no evidence to suggest cellulitis. Objective Labs Result Diagrams: 09/02/20 03:33 09/02/20 03:33 Labs: Laboratory Results - last 24 hr 09/01/20 09/02/20 09/02/20 10:00 03:33 03:33 WBC 4.3 L D RBC 3.95 L Hgb 11.9 L Hct 34.8 L MCV 88.2 MCH 30.2 MCHC 34.2 RDW 12.3 Plt Count 206 Neut % (Auto) 62.7 Lymph % (Auto) 20.8 L [place] % (Auto) 13.0 Eos % (Auto) 2.6 Baso % (Auto) 0.9 Neut # (Auto) 2700 Lymph # (Auto) 900 L [place] # (Auto) 600 Eos # (Auto) 100 Baso # (Auto) 0 Sodium Potassium Chloride Carbon Dioxide BUN Creatinine Estimated GFR BUN/Creatinine Ratio Glucose Calcium Total Bilirubin AST ALT Alkaline Phosphatase Total Protein Albumin Globulin Albumin/Globulin Ratio Vancomycin Trough 11.5 U Opiates 300ng/mL cut Positive H Ur Oxycodone Screen Negative Urine Methadone Screen Negative Ur Barbiturates Screen Negative U Tricyclic Antidepress Negative Ur Phencyclidine Scrn Negative Ur Amphetamines Screen Positive H U Methamphetamines Scrn Positive H Ur MDMA Scrn (Ecstasy) Negative U Benzodiazepines Scrn Negative Urine Cocaine Screen Negative U Marijuana (THC) Screen Negative 09/02/20 03:33 WBC RBC Hgb Hct MCV MCH MCHC RDW Plt Count Neut % (Auto) Lymph % (Auto) [place] % (Auto) Eos % (Auto) Baso % (Auto) Neut # (Auto) Lymph # (Auto) [place] # (Auto) Eos # (Auto) Baso # (Auto) Sodium 139 Potassium 3.9 Chloride 110 H Carbon Dioxide 27 BUN 13 Creatinine 0.66 Estimated GFR > 60.0 BUN/Creatinine Ratio 19.7 Glucose 97 Calcium 8.5 Total Bilirubin 0.3 AST 45 ALT 34 Alkaline Phosphatase 60 Total Protein 6.3 Albumin 3.3 L Globulin 3.0 Albumin/Globulin Ratio 1.1 Vancomycin Trough U Opiates 300ng/mL cut Ur Oxycodone Screen Urine Methadone Screen Ur Barbiturates Screen U Tricyclic Antidepress Ur Phencyclidine Scrn Ur Amphetamines Screen U Methamphetamines Scrn Ur MDMA Scrn (Ecstasy) U Benzodiazepines Scrn Urine Cocaine Screen U Marijuana (THC) Screen [facility] Social History household members: significant other Smoking Status: Current every day smoker alcohol intake: current Discharge Assessment & Plan Assessment and Plan Assessment: 1. Lower extremity cellulitis 2. History of polysubstance abuse 3. Seizure disorder Plan of Treatment: Discharge home on antibiotic Follow-up with PCP next week Discharge Plan Discharge Plan Patient Disposition: Home Discharge orders & Medications Prescriptions: New amoxicillin-pot clavulanate [Augmentin] 875-125 mg tablet 1 tab PO BID Qty: 14 RF: 0 Continued levetiracetam [Keppra] 500 mg Tablet 500 mg PO TID RF: 0 Discharge Health Status Care Plan Goals: follow up with PCP within one week Multidrug resistant organism: No MDRO Diet/Activity/Treatments Diet: Diet as Tolerated Activity: as tolerated Skin/Wound/Dressing Care Report to your healthcare provider any signs of infection, such as:: chills, fever Quality VTE Deep Vein Thrombosis/Pulmonary Embolism Present on Admission: No
[2020-09-02] MEDS: levETIRAcetam 250 MG TABLET 500 MG PO (09:26)
[2020-09-02 09:37] VITALS: O2SAT 99
--- NOTE | 2020-09-02 10:20 | PC.NURSE ---
PATIENT'S IV SITES X2 DC'D INTACT. PROVIDED SCRIPT FOR ABX WITH TEACHING. INSTRUCTED TO CONTINUE KEPPRA ORDERED, PATIENT CONFIRMS STILL HAS IT AT HOME. PATIENT'S S.O. ARRIVED TO TAKE PATIENT HOME. PATIENT ESCORTED BY THIS SILVER BRAZER WITH ALL BELONGINGS AND PAPERWORK WITHOUT S/SX'S OF DISTRESS.
--- NOTE | 2020-09-02 10:26 | CM.SWNOTE ---
INBOUND CALL CENTER REPRESENTATIVE Note According to chart review, patient presented to the ED 09.01.20 0407 w/swollen legs, suspected cellulitis, ankle bracelet in place, PMH includes seizure disorder, home med=Keppra Patient had presented to [facility] ER very recently and left AMA when they suggested admission for bacteremia, according to Mulu Kern's ED report; He states he has a history of heroin use and recently relapsed. And her facility record schizoaffective disorder, hepatitis-C and bipolar affective disorder. Patient initially accompanied by significant other and child. Additional Consultation(s): Called [phone] Lydia Mata at [employer], and left message at [phone] and left voicemail regarding patient's need to have ankle monitor removed. Lydia Mata called back at [phone] and recommended monitoring bracelet stay with patient. She does ask to be contacted if patient is transferred, leaves or is admitted. Her cell number is [phone] and this is the best way to reach her. Patient has given permission to speak with her and complaint investigations officer both. Patient's significant other also updated. Patient was admitted to the floor yesterday, tox screen + for opiates and meth. Patient was too lethargic for consults by PT/OT and this INBOUND CALL CENTER REPRESENTATIVE yesterday morning and by the time patient became conversational this INBOUND CALL CENTER REPRESENTATIVE was leaving for the day. This morning, patient A+O, moving indp in room, WBC WNL and patient discharged w/po abx. Patient left w/spouse before this INBOUND CALL CENTER REPRESENTATIVE able to complete assessment. Placed call to Lydia Mata, updated her on patient's medical discharge from . Lydia appreciative of the call and will be in contact w/patient. STEPHANIE Romero
[2020-09-02 13:49] LABS: Procalcitonin 0.12 ng/mL (<0.5)
[2020-09-04 04:10] LABS: C-Reactive Protein Quant 16.4 mg/dL (<1.0)
[2020-09-06 02:36] LABS: Levetiracetam Keppra < 1.0 ug/mL (10.0-40.0)
[2020-09-07 23:40] LABS: Levetiracetam Keppra 9.9 ug/mL (10.0-40.0)
== END 2020-09-02 10:10 | disposition home or self-care (01) ==
LOC: ED 05:44 → ICU 07:22 → AC 09-04 09:34 → ICU 09-04 09:34
PROVIDERS: Admitting Provider Nurse Practitioner Family; Emergency Provider Emergency Medicine; Referring Provider Emergency Medicine; Visit Provider Nurse Practitioner Family
DX: L03.116 Cellulitis of left lower limb (principal); L03.115 Cellulitis of right lower limb; G40.909 Epilepsy, unspecified, not intractable, without status epilepticus; F17.210 Nicotine dependence, cigarettes, uncomplicated; F11.10 Opioid abuse, uncomplicated; F15.10 Other stimulant abuse, uncomplicated; Z20.828 Contact with and (suspected) exposure to other viral communicable diseases
CPT/HCPCS: 36415; 80053; 80177; 80202; 80305; 82550; 83605; 83735; 84145; 85025; 85651; 86140; 87040; 87635; 87797; 93970; 96361; 96365; 96366; 96367; 96368; 96375; 96376; 99283; 99284; G0378; J1885; J1953; J2060; J2270; J2543

== ENCOUNTER 2020-09-08 23:41 | Emergency (ER) | payer OTHER, MEDICAID, SELFPAY ==
[2020-09-01 16:24] VITALS: BMI 27.0
--- NOTE | 2020-09-09 00:09 | ED_ITS ---
HPI - Extremity Problem General Chief complaint: Extremity Problem,Nontraumatic Stated complaint: pain sweling infeet states has cellulitis Time Seen by Provider: 09/08/20 23:51 Source: patient Mode of arrival: Ambulatory Limitations: no limitations History of Present Illness HPI Narrative: 29-year-old male smoker with history of IV drug abuse (heroin, most recently a day and a half ago) returns for evaluation of bilateral lower extremity redness, pain and swelling. He was seen and evaluated here on 09/01 and discharged after 2 days, home on oral antibiotics which he finishes tomorrow. He states that over the past few days he has had increasing redness and pain, now circumferential in mid schmidt, he states the last time it was just his feet with some pretibial erythema. He denies any systemic findings such as fever, chills nor nausea or vomiting. He denies chest pain or shortness of breath. He denies any exposure to persons known to have COVID-19. MD Complaint: extremity pain and extremity swelling Onset (ago): day(s) Pain Consistency: constant Location: left and right Quality: burning, stabbing and aching Radiation: proximal Relieving factors: immobilization Exacerbating factors: range of motion, weight bearing and walking Associated symptoms: denies other symptoms Related Data Home Medications Medication Instructions Recorded Confirmed levetiracetam [Keppra] 500 mg PO TID 09/01/20 09/01/20 Previous Rx's Medication Instructions Recorded amoxicillin-pot clavulanate 1 tab PO BID #14 tab 09/02/20 [Augmentin] Allergies Allergy/AdvReac Type Severity Reaction Status Date / Time No Known Drug Allergies Allergy Verified 09/30/19 10:05 Review of Systems Constitutional Constitutional: Denies chills, Denies fatigue, Denies fever(s), Denies frequent falls, Denies lethargy and Denies weakness Eyes Eyes: Denies change in vision, Denies eye discharge, Denies irritation and Jeff es loss of vision ENT Ears, Nose, Mouth, and Throat: Denies change in voice, Denies dizziness, Denies neck pain, Denies sore throat and Denies throat swelling Cardiovascular Cardiovascular: Denies chest pain, Denies irregular heart rhythm, Denies lightheadedness, Denies palpitations, Denies dyspnea, Denies dyspnea on exertion and Denies orthopnea Respiratory Respiratory: Denies cough, Denies dyspnea, Denies dyspnea on exertion and Denies wheezing Gastrointestinal Gastrointestinal: Denies abdominal pain, Denies change in bowel habits, Denies diarrhea, Denies nausea and Denies vomiting Musculoskeletal Musculoskeletal: Denies neck pain and Denies numbness Integumentary/Breasts Skin/Breast: Denies pruritus, Reports erythema, Denies rash, Reports skin pain, Reports skin swelling and Denies wounds Neurologic Neurologic: Denies behavioral changes, Denies confusion, Denies dizziness, Denies frequent falls, Denies loss of vision, Denies numbness and Denies weakness Psychiatric Psychiatric: Denies anxiety, Denies behavioral changes, Denies confusion, Denies depression, Denies homicidal ideation and Denies suicidal ideation Endocrine Endocrine: Denies fatigue, Denies flushing and Denies palpitations Hematologic/Lymphatic Hematologic/Lymphatic: Denies easy bruising Allergic/Immunologic Allergic/Immunologic: Denies urticaria, Denies throat swelling and Denies wheezing Patient History Medical History Bipolar 1 disorder Hepatitis C IVDU (intravenous drug user) Polysubstance abuse Schizoaffective disorder Seizure disorder Tobacco dependence Surgical History No pertinent past surgical history Family History Mother Healthy adult Father Healthy adult Brother Pancreatic cancer Social History household members: significant other Smoking Status: Current every day smoker alcohol intake: current Smoking Status: Current every day smoker alcohol intake frequency: other Substance Use Type: former substance user, heroin and amphetamines Exam Narrative Exam Narrative: GENERAL: [29] year old patient appears stated age. Well- nourished, well-developed patient, in mild distress. HEAD: Atraumatic. Normocephalic. EYES: Pupils equal round and reactive. Extraocular motions intact. No scleral icterus. No injection or drainage. ENT: Nose without bleeding, purulent drainage. Throat without erythema, tonsillar hypertrophy or exudate. Airway patent. NECK: Trachea midline. Non tender CARDIOVASCULAR: Regular rate and rhythm without murmurs, gallops, or rubs. RESPIRATORY: Clear to auscultation. Breath sounds equal bilaterally. No wheezes, rales, or rhonchi. GASTROINTESTINAL: Abdomen soft, non-tender, nondistended. EXTREMITIES: Significant redness, pain and swelling to bilateral feet, he has had to cut his shoes to allow for the swelling in his feet. Circumferential erythema and warmth [address] his legs. BACK: Nontender without deformity or crepitance. No flank tenderness. NEURO: AOx3. SKIN: No rash or erythema of visible areas Initial Vital Signs Initial Vital Signs: Vital Signs Pulse Rate 119 H 09/09/20 00:20 Blood Pressure 118/52 L 09/09/20 00:20 Pulse Oximetry 99 09/09/20 00:20 Course Course Course Narrative: paatient became increasingly upset and eventually left the department despite encouragement to stay by multiple people Orders Ordered: ED Orders 09/09/20 01:05 Blood Culture Stat Discontinued Medications Lactated Ringer's (Lactated Ringers) 2,790 mls @ 930 mls/hr 30 ml/kg infuse over 3 hr (2790 ml) IV NOW ONE Stop: 09/09/20 03:32 Vancomycin HCl/Dextrose (Vancomycin) 2,000 mg in 400 mls @ 200 mls/hr IV NOW ONE Stop: 09/09/20 02:33 Nicotine (Nicotine 21 Mg Patch) 21 mg TOP NOW ONE Stop: 09/09/20 01:09 Vital Signs Vital signs: Vital Signs - 8 hr 09/09/20 00:20 09/09/20 00:23 09/09/20 00:30 Temperature 98.3 F Pulse Rate 119 H 116 H 115 H Respiratory Rate 22 Blood Pressure 118/52 L 115/76 Pulse Oximetry 99 99 98 Discharge Plan Departure Patient Disposition: Left Against Medical Advice Clinical Impression: Bilateral cellulitis of lower leg Prescriptions: No Action levetiracetam [Keppra] 500 mg Tablet 500 mg PO TID RF: 0 amoxicillin-pot clavulanate [Augmentin] 875-125 mg tablet 1 tab PO BID Qty: 14 RF: 0 Stand Alone Forms: Against Medical Advice
[2020-09-09 00:20] VITALS: BP 118/52; PULSE 119; O2SAT 99
[2020-09-09 00:23] VITALS: BP 115/76; PULSE 116; RESP 22; TEMP 36.8; O2SAT 99
[2020-09-09 00:30] VITALS: PULSE 115; O2SAT 98
[2020-09-09 00:32] VITALS: BMI 27.8
== END 2020-09-09 01:28 | disposition left against medical advice (07) ==
PROVIDERS: Emergency Provider Emergency Medicine
DX: L03.116 Cellulitis of left lower limb (principal); L03.115 Cellulitis of right lower limb; F31.9 Bipolar disorder, unspecified; Z86.19 Personal history of other infectious and parasitic diseases; Z72.0 Tobacco use; F25.9 Schizoaffective disorder, unspecified; G40.909 Epilepsy, unspecified, not intractable, without status epilepticus; F19.10 Other psychoactive substance abuse, uncomplicated
CPT/HCPCS: 87040; 99281; 99282